=== PATIENT | female | born 1995 | race Caucasian/White ===

== ENCOUNTER 2023-06-25 10:51 | Outpatient (CLI) | payer OTHER, SELFPAY ==
[2023-06-25 11:44] LABS: Basophils Percent Auto 0.6 % (0.2-1.2); Eosinophils Absolute Auto 0.1 K/mm3 (0-0.3); Eosinophils Percent Auto 1.3 % (0-4.4); Hematocrit 41.5 % (37.0-47.0); Immature Granulocyte Absolute 0.02 K/mm3 (0.00-0.031); Immature Granulocyte Percent A 0.3 % (0-0.5); Lymphocytes Percent Auto 26.2 % (18.3-44.2); Mean Corpuscular HGB Conc 33.7 g/dl (32-36); Mean Corpuscular Hemoglobin 32.3 pg (26-34); Mean Corpuscular Volume 95.8 fl (80-100); Mean Platelet Volume 9.6 fl (7.4-10.4); Monocytes Absolute Auto 0.6 K/mm3 (0.1-0.6); Monocytes Percent Auto 8.2 % (2.6-8.5); Neutrophils Absolute Auto 4.4 K/mm3 (1.3-6.7); Neutrophils Percent Auto 63.4 % (45.5-73.1); Platelet Count Result 239 k/mm3 (150-375); Red Blood Count 4.33 M/mm3 (4.2-5.4); Red Cell Distribution Width 12.4 % (11.5-14.5); White Blood Count 6.9 K/mm3 (4.5-10.0)
[2023-06-25 12:41] LABS: HIV 1/2 Ab P24 Ag Result Negative (Negative); Rapid Plasma Reagin Non-Reactive (NonReactive)
[2023-06-25 13:33] LABS: Hepatitis B Surface Antigen Negative (Negative); Rubella IgG Antibody 25.1 IU/ML
[2023-06-28 16:26] LABS: Varicella IgG Antibody <135.00 Index (>=165.00)
[2023-07-03 00:31] LABS: CF Result NEGATIVE (NEGATIVE)
[2023-07-05 17:03] LABS: SMA 2.0 RISK VARIANT NOT DETECTED
[2023-07-13 15:29] LABS: SMA Results Received Yes
== END 2023-06-25 10:52 | disposition home or self-care (01) ==
PROVIDERS: PCP Student in an Organized Health Care Education/Training Program; Visit Provider Student in an Organized Health Care Education/Training Program
DX: N91.2 Amenorrhea, unspecified (principal)
CPT/HCPCS: 36415; 81220; 81329; 85025; 86592; 86644; 86703; 86747; 86762; 86787; 86850; 87086; 87340; G0432

== ENCOUNTER 2023-07-31 16:37 | Outpatient (CLI) | payer OTHER, SELFPAY | END 2023-07-31 16:38 | disposition home or self-care (01) | PROVIDERS: PCP Student in an Organized Health Care Education/Training Program; Visit Provider Student in an Organized Health Care Education/Training Program | DX: N91.2 Amenorrhea, unspecified (principal) | CPT/HCPCS: 36415; 86900; 86901 ==

== ENCOUNTER 2023-11-03 10:45 | Outpatient (CLI) | payer OTHER, SELFPAY ==
[2023-11-03 12:28] LABS: Hematocrit 39.5 % (37.0-47.0); Hemoglobin 12.7 g/dL (12.0-15.0); Mean Corpuscular HGB Conc 32.2 g/dl (32-36); Mean Corpuscular Hemoglobin 32.7 pg (26-34); Mean Corpuscular Volume 101.8 fl (80-100); Mean Platelet Volume 9.9 fl (7.4-10.4); Platelet Count Result 190 k/mm3 (150-375); Red Blood Count 3.88 M/mm3 (4.2-5.4); Red Cell Distribution Width 13.8 % (11.5-14.5); White Blood Count 7.3 K/mm3 (4.5-10.0)
[2023-11-03 12:38] LABS: Glucose 1 Hour PP 50gm Dose 124 mg/dL
[2023-11-03 13:53] LABS: HIV 1/2 Ab P24 Ag Result Negative (Negative)
== END 2023-11-03 10:46 | disposition home or self-care (01) ==
LOC: ANHLAB 10:47
PROVIDERS: Visit Provider Student in an Organized Health Care Education/Training Program
DX: Z34.90 Encounter for supervision of normal pregnancy, unspecified, unspecified trimester (principal); Z3A.00 Weeks of gestation of pregnancy not specified
CPT/HCPCS: 36415; 82947; 85027; 86703; G0432

== ENCOUNTER 2023-12-24 15:52 | Outpatient (CLI) | payer OTHER, SELFPAY ==
--- NOTE | ~2023-12-24 | US_ITS ---
EXAMINATION: US OB follow up DATE: 12/24/2023 16:24 INDICATION: Encounter for supervision of normal . TECHNIQUE: Real-time ultrasound of the pelvis was performed. COMPARISON: Ultrasound 09/12/2023, 06/06/2023 FINDINGS: There is a single living fetus in vertex presentation. The placenta is anterior. heart rate is 133 beats per minute (bpm). The amniotic fluid index is 12.0 cm, which is normal. The following biometric data were obtained: Biparietal diameter (BPD): 9.1 cm; head circumference (HC): 32.8 cm; abdominal circumference (AC): 32 .0 cm; femur length (FL): 6.6 cm. These measurements are concordant. Estimated weight is 2750 g +/- 413 g, which correlates with the 57th percentile when 01/25/24 is used as estimated date of delivery. As single measurements, these parameters are each equal to the following estimated gestational ages: BPD: 37 weeks 0 days. HC: 37 weeks 2 days. AC: 35 weeks 6 days. FL: 34 weeks 1 days. estimated gestational age based solely on measurements from this exam is 36 weeks 1 days +/- 2 weeks 4 days. IMPRESSION: 1. Single living fetus in vertex presentation. 2. Estimated weight is 2750 g +/- 413 g, which correlates with the 57th percentile when 4 is used as estimated date of delivery. Reviewed, dictated and finalized at location A. IMPRESSION: 1. Single living fetus in vertex presentation. 2. Estimated weight is 2750 g +/- 413 g, which correlates with the 57th percentile when 01/25/24 is used as estimated date of delivery.
== END 2023-12-24 15:53 ==
PROVIDERS: PCP Obstetrics & Gynecology; Visit Provider Obstetrics & Gynecology
DX: Z34.93 Encounter for supervision of normal pregnancy, unspecified, third trimester (principal); Z3A.36 36 weeks gestation of pregnancy
CPT/HCPCS: 76816

== ENCOUNTER 2024-01-22 21:32 | Inpatient (IN) | payer OTHER, SELFPAY ==
[2024-01-22 21:45] VITALS: TEMP 36.1
[2024-01-23] VITALS (175 sets, daily range): BP systolic 63–134; BP diastolic 26–118; PULSE 66–204; RESP 16–20; TEMP 36.6–37.1; O2SAT 75–100; BMI 26.6
--- NOTE | 2024-01-23 01:03 | LDADM ---
This patient, Neema Olmedo, was admitted to Labor/Delivery/Recovery 106 on 01/22/24 at 21:32. Plans for labor, pain management and were discussed with patient. Patient/family oriented to hospital policies and general routines including ID bracelet, bed and alarms, visiting hours, pain management, procedures, bathroom and other care routines, personal items, smoking policy, room service/diet and guest tray routines, infant security routines, and visiting hours. Patient/Family are encouraged to report perceived risks to care and to ask questions if they do not understand what they are told or what they should do. See OBIX for further documentation.
[2024-01-23 01:20] LABS: Basophils Percent Auto 0.3 % (0.2-1.2); Eosinophils Percent Auto 0.1 % (0-4.4); Hematocrit 40.8 % (37.0-47.0); Immature Granulocyte Absolute 0.07 K/mm3 (0.00-0.031); Immature Granulocyte Percent A 0.6 % (0-0.5); Lymphocytes Absolute Auto 1.57 K/mm3 (0.9-3.2); Lymphocytes Percent Auto 13.1 % (18.3-44.2); Mean Corpuscular HGB Conc 34.3 g/dl (32-36); Mean Corpuscular Hemoglobin 33.2 pg (26-34); Mean Corpuscular Volume 96.7 fl (80-100); Mean Platelet Volume 10.5 fl (7.4-10.4); Monocytes Absolute Auto 0.7 K/mm3 (0.1-0.6); Monocytes Percent Auto 5.4 % (2.6-8.5); Neutrophils Absolute Auto 9.6 K/mm3 (1.3-6.7); Neutrophils Percent Auto 80.5 % (45.5-73.1); Platelet Count Result 202 k/mm3 (150-375); Red Blood Count 4.22 M/mm3 (4.2-5.4); Red Cell Distribution Width 13.3 % (11.5-14.5)
[2024-01-23] MEDS: LACTATED RINGERS 1,000 ML 125 ML IV CONT ×2 (02:18→09:15)
--- NOTE | 2024-01-23 03:16 | WPDANESEPP ---
Anes - Eval Pre Procedure Procedure: Labor Epidural Date/Time: 01/23/24 03:16 Surgeon: Mikel Preop Diagnosis: Labor Pain Pre Op Diagnosis: Contractions Patient Data Age: 28 Gender: F Height: 1.68 m Weight: 75 kg Last Vital Signs Temp 36.1 C L 01/22/24 21:45 Pulse 93 01/23/24 03:00 BP 113/68 01/23/24 03:00 O2 Del Method Room Air 01/23/24 01:02 Allergies Allergy/AdvReac Type Severity Reaction Status Date / Time No Known Allergies Allergy Verified 01/22/24 17:16 Home Medications Medication Instructions Recorded Confirmed Type vits no.126-ferrous fum tablet PO 07/02/23 01/22/24 History 28 mg iron-folic acid 800 mcg tablet (Classic ) Laboratory Tests 01/23/24 00:45 WBC 12.0 H K/mm3 (4.5-10.0) RBC 4.22 M/mm3 (4.2-5.4) Hgb 14.0 g/dL (12.0-15.0) Hct 40.8 % (37.0-47.0) MCV 96.7 fl (80-100) MCH 33.2 pg (26-34) MCHC 34.3 g/dl (32-36) RDW 13.3 % (11.5-14.5) Plt Count 202 k/mm3 (150-375) MPV 10.5 H fl (7.4-10.4) Immature Gran % (Auto) 0.6 H % (0-0.5) Neut % (Auto) 80.5 H % (45.5-73.1) Lymph % (Auto) 13.1 L % (18.3-44.2) [place] % (Auto) 5.4 % (2.6-8.5) Eos % (Auto) 0.1 % (0-4.4) Baso % (Auto) 0.3 % (0.2-1.2) Lymph # (Auto) 1.57 K/mm3 (0.9-3.2) [place] # (Auto) 0.7 H K/mm3 (0.1-0.6) Eos # (Auto) 0.0 K/mm3 (0-0.3) Baso # (Auto) 0.0 K/mm3 (0.0-0.1) Abs Immat Gran (auto) 0.07 H K/mm3 (0.00-0.031) Absolute Neuts (auto) 9.6 H K/mm3 (1.3-6.7) Absolute Nucleated RBC 0.000 K/mm3 (0.0-0.012) Nucleated RBC % 0.0 % (0.0-0.2) RPR Pending Blood Type A Positive Antibody Screen Negative : gestational age Patient hx anesthesia problems: none Family hx anesthesia problems: none Results Review: All pre-operative results and documents have been reviewed as part of the pre-operative evaluation. [facility] Past Medical History Medical History Family History Family History Grandparent Diabetes mellitus Social History Social History Smoking status: Never smoker Second hand tobacco smoke exposure: No Alcohol intake: former Substance use: never Do You Feel Safe in your Home?: Yes Lack of Transportation: No Lack of Food: Never True Current Housing: I Have Housing Concerned About Future Housing: No Difficulty Paying Gas/Electric Bills: No Difficulty Paying for Meds: No Currently Unemployed: No Education: Bachelor's Degree Difficulty w/ Childcare or Family Care: No Living arrangements: with family Occupation/Education: occupation Additional occupation/education comments: teacher Gender identity (if verbalized by the patient): Female Sexual Orientation (if Verbalized by the Patient): Straight or Heterosexual Spiritual care concerns: No Exam Day of Procedure 01/23/24 03:16 Patient weight: normal Heart: regular rate and rhythm Lungs: normal air movement Airway: Mallampati scale class II Neurological: alert and oriented
--- NOTE | 2024-01-23 07:53 | WPDHPUPDATE1 ---
History and Physical Update Update Date/Time: 01/23/24 07:53 28 yo G1 who presents in labor. History and Physical has been reviewed, including an updated exam of the patient. There are NO changes in the patient's condition. Risks, benefits, and alternatives have been discussed and questions answered. Patient agrees to proceed with procedure. A/P: admit to labor routine admission orders Rh+ GBS neg expectant management continuous EFM
--- NOTE | 2024-01-23 07:59 | PM.OBPNLAB ---
Pain Control Date/time seen: 01/23/24 07:59 Pain control: epidural Pelvic Exam Dilation (cm): 6 Effacement (%): 90 station: -1 Amniotic membrane status: Intact Contractions Monitor mode: External Contraction pattern: Regular Status status: Category ll Assessment and Plan Assessment: active labor Comments: AROM for meconium stained fluid.
[2024-01-23] MEDS: OXYTOCIN 30 UNITS/NS 500 ML 30 UNITS/500 ML BAG IV CONT (09:15)
[2024-01-23 12:30] LABS: Rapid Plasma Reagin Non-Reactive (NonReactive)
--- NOTE | 2024-01-23 13:05 | WPDHPUPDATE1 ---
History and Physical Update Update Date/Time: 01/23/24 13:05 History and Physical has been reviewed, including an updated exam of the patient. There are NO changes in the patient's condition. Risks, benefits, and alternatives have been discussed and questions answered. Patient agrees to proceed with procedure.
--- NOTE | 2024-01-23 13:05 | WPDOBADMIT ---
Obstetrics - Admit Note Admission Note: record reviewed. No pertinent additions to the history and/or any subsequent changes in the physical findings that are not consistent with the expected course of the were found. Additions to the history and/or subsequent changes in the physical findings follow. None.
--- NOTE | 2024-01-23 13:05 | PM.OBPRVD ---
OB - Vaginal Delivery Note Procedure Delivery date: 01/23/24 Intrapartal Events: Other ( Meconium-stained) Induction method: None Delivery augmentation: Rupture of Membranes and Pitocin Delivery monitor: External FHT and External Uterine Route of delivery: Episiotomy description: None Laceration Description: Perineal - 2nd Degree Delivery repair: chromic Specimen: Yes Quantitative Blood Loss (ml): 200 Anesthesia type: Epidural Disposition: Floor Complications: No immediate complications Narrative: patient prepped and draped in usual manner this procedure. Maternal expulsive efforts readily delivered vertex, rest of baby was delivered without difficulty. Cord clamped cut baby was passed off the operative field to countersinker balance screw hole who was in attendance. Placenta delivered spontaneously, uterus was well contracted. Second-degree laceration was noted and approximated using 2-0 chromic my approximate vaginal tissue deep tissue was subcuticular layer with good approximation hemostasis noted. Uterus was well contracted with minimal bleeding and this point the procedureWas considered terminated. [place] Baby Weeks of gestation at delivery: 39 Infant gender: Male Weight (pounds): 7 Weight (ounces): 10 presentation: vertex position: Right Occiput Anterior Placenta delivery description: Spontaneous Cord Vessel Description: 3 Vessels score one minute: 8 score five minutes: 9
[2024-01-23] MEDS: OXYTOCIN 30 UNITS/NS 500 ML 30 UNITS/500 ML BAG 125 UNITS IV CONT (13:30)
[2024-01-23] MEDS: WITCH HAZEL 40 PADS 1 PAD TOPICAL (15:08)
[2024-01-23] MEDS: BENZOCAINE 20% AER SPR (*SP) 56 GM CAN 1 SPRAY TOPICAL (15:08)
--- NOTE | 2024-01-23 15:35 | OBPPTRN ---
Patient transferred to post room #280 via wheelchair. Support person present. Oriented to unit, room, information board, rooming in, admission packet and security measures. Patient verbalizes understanding.
[2024-01-23] MEDS: ACETAMINOPHEN 325 MG TABLET 650 MG PO (16:20)
[2024-01-23] MEDS: IBUPROFEN 600 MG TABLET PO (16:20)
[2024-01-23] MEDS: DIBUCAINE 1% OINTMENT 30 GM TUBE 1 APPLIC TOPICAL (17:56)
--- NOTE | 2024-01-23 20:19 | WPDANLDPN2 ---
Anes-Prog Note L&D Date/Time: 01/23/24 20:19 Comfortable throughout: labor and delivery Neuraxial method: epidural Epidural/Spinal procedure site: clean & non-tender Neuro status: Neuro function grossly intact. Cardiovascular status: normal Respiratory status: normal Airway patency: baseline Mental status: baseline Post-Op hydration status: normal Vital Signs: Last Vital Signs Temp 36.6 C 01/23/24 19:15 Pulse 96 01/23/24 19:15 Resp 20 01/23/24 19:15 BP 104/64 01/23/24 19:15 Pulse Ox 99 01/23/24 19:15 O2 Del Method Room Air 01/23/24 15:40 Pain score (VAS): 09/26 I/O: Intake & Output 01/23/24 01/23/24 01/23/24 07:59 15:59 23:59 Intake Total 1368.8 Output Total 200 Balance 1168.8 Post-procedural complaints: none Patient feedback: Patient satisfied with anesthetic care.
[2024-01-24 03:11] VITALS: BP 96/58; PULSE 67; RESP 20; TEMP 36.7; O2SAT 100
[2024-01-24] MEDS: HYDROcodone/acetaminophen (*CRX) 5-325 MG TABLET 1 TAB PO (03:26)
[2024-01-24] MEDS: IBUPROFEN 600 MG TABLET PO ×4 (03:27→23:43)
[2024-01-24 04:43] LABS: Hematocrit 35.2 % (37.0-47.0); Hemoglobin 11.4 g/dL (12.0-15.0)
[2024-01-24] MEDS: DOCUSATE SODIUM 100 MG CAPSULE PO ×2 (08:45→17:09)
[2024-01-24] MEDS: MULTIVIT/MIN/PREN/FOL AC/IRON TABLET 1 TAB PO (08:45)
--- NOTE | 2024-01-24 08:57 | PM.OBDSVD ---
DS: Admitting Diagnosis Discharge Date 01/25/2024 Admitting Diagnosis DS: Discharge Diagnosis Discharge Diagnosis (1) , delivered: Code(s): O80 - Encounter for full-term uncomplicated delivery Status: Acute OB - DS: Summary OB Procedures : None OB Procedures Intrapartum: Spontaneous Vag Delivery OB Procedures: : None Peripartum Data Laceration Description: Perineal - 2nd Degree Episiotomy description: None Time Spent with Patient Time attestation: Total time spent providing and/or coordinating discharge services: DS: Data Data Completed and Pending Pending studies at discharge: Pending at discharge 01/23/24 13:57 Surgical [PTH] Routine Labs on day of discharge: Labs from last 24 hours 01/24/24 01/23/24 02:59 00:45 Hgb 11.4 L Hct 35.2 L RPR Non-reactive Discharge Plan Discharge Discharging Clinician: Luisito Morin Patient Disposition: Home, Self-Care Activity: unlimited and pelvic rest Diet: as tolerated Patient Instructions: Antibiotic Form Stand Alone Forms: General Discharge Information Follow-up/Referrals: Luisito Morin MD [Physician] - 3 Weeks Discharge Medications: New hydrocodone-acetaminophen 5-325 mg Tablet 1 tablet PO Q3HR PRN (Reason: Pain Rated 4-6) Qty: 10 0RF ibuprofen 600 mg Tablet 600 mg PO Q6H PRN (Reason: Cramping) Qty: 30 0RF Continued Classic 28 mg iron- 800 mcg tablet PO Date of admission: 01/22/24 21:32 Primary Care Provider: UNKNOWN,DOCTOR Admitting Provider: Luisito Morin Attending physician on admission: Luisito Morin Condition: Stable
[2024-01-24 09:30] VITALS: BP 93/63; PULSE 80; RESP 16; TEMP 36.9; O2SAT 100
[2024-01-24] MEDS: ACETAMINOPHEN 325 MG TABLET 650 MG PO ×3 (09:38→23:42)
--- NOTE | 2024-01-24 13:06 | WPDANLDPN2 ---
Anes-Prog Note L&D Date/Time: 01/24/24 13:06 Comfortable throughout: labor and delivery Neuraxial method: epidural Epidural/Spinal procedure site: clean & non-tender Neuro status: Neuro function grossly intact. Cardiovascular status: normal Respiratory status: normal Airway patency: baseline Mental status: baseline Post-Op hydration status: normal Vital Signs: Last Vital Signs Temp 36.9 C 01/24/24 09:30 Pulse 80 01/24/24 09:30 Resp 16 01/24/24 09:30 BP 93/63 L 01/24/24 09:30 Pulse Ox 100 01/24/24 09:30 O2 Del Method Room Air 01/23/24 15:40 Pain score (VAS): 3/10 Post-procedural complaints: none Patient feedback: Patient satisfied with anesthetic care.
--- NOTE | 2024-01-24 16:42 | PC.NURSE ---
[id number] Introductions were made, then consulted with patient to assess needs related to . Mother led the conversation with her?plans to feed?her infant and the?experience so far. Encouraged understanding of the benefits of skin to skin (demonstrating unwrapping and placing upright on her chest), stimulating with massage touch, changing positions to encourage wakefulness, how to watch for early feeding cues, responsive feeding, feeding on demand (aiming for 8-12 times in 24 hours, about every 2-3 hours), milk production, building/maintaining a milk supply, duration of feeding, signs of adequate intake/output and how to record on the feeding sheet. Mother works well with her with encouragement and education. Reviewed positioning and ear, shoulder, hip alignment, supporting the breast to facilitate a deep latch, asymmetrical latch (off-center), leading with the chin with a big, open, wide gape and body close to mother. Infant latched optimally to the right breast in cross cradle position. Education given to the mother of how to visualize the suckling (with good rocking jaw motion), swallows (dropping of the lower jaw) and how to listen for drinking at the breast (the ka sound) which demonstrates. Infant was able to maintain latch without pain to mother protecting the nipple with optimal positioning, latching until self detaching with no misshaped nipple. Reviewed comfort measures of healing with a warm, wet washcloth to rinse breast, then leave open to air-dry, good handwashing when or touching the breast/nipples to prevent infection. Mother voiced understanding of skin to skin, stimulating with massage touch, responsive feedings, hand expressed colostrum, talking to infant to encourage if it has been 2 -2.5 hours since the start of the last , to call if does not latch, or if there is discomfort with . Resources used for education were facilitated with the visual educational handouts/ tool/mom and baby guide. Inpatient/outpatient name written on the communication board and the mom/baby guide. Parents voiced understanding of information, demonstrated learning and will call if there is a request for assistance. Reported to the Primary RN.
[2024-01-24 20:54] VITALS: BP 92/65; PULSE 89; RESP 18; TEMP 36.4; O2SAT 100
[2024-01-25 07:45] VITALS: BP 108/67; PULSE 82; RESP 16; TEMP 36.6; O2SAT 100
--- NOTE | 2024-01-25 08:30 | PC.NURSE ---
Karie Montague RN at the desk, notified that mother is getting ready to feed and has requested that Gloria come in to observe the latch and feeding. Mother also has questions.
--- NOTE | 2024-01-25 09:39 | PC.NURSE ---
Addendum entered by Genet Frausto RN 01/25/24 09:42: Mother states that DanayRusty Montague did not make it in the room for the 0830 feeding so she would like to see her at the next feeding, mother wants to see her before going home today. Original Note: Karie Montague RN notified that baby is due to eat around [id number] and mother would like her to come in and see the feeding before she goes home.
--- NOTE | 2024-01-25 10:21 | PC.NURSE ---
Patient viewed the discharge video Mother & Baby Care, The First Two Weeks . Patient was given the opportunity and encouraged to ask questions. Patient verbalized understanding of information shared and has been given the mother/baby guide for home reference.
[2024-01-25] MEDS: WITCH HAZEL 40 PADS 1 PAD TOPICAL (10:25)
[2024-01-25] MEDS: BENZOCAINE 20% AER SPR (*SP) 56 GM CAN 1 SPRAY TOPICAL (10:25)
[2024-01-25] MEDS: MULTIVIT/MIN/PREN/FOL AC/IRON TABLET 1 TAB PO (10:25)
[2024-01-25] MEDS: DOCUSATE SODIUM 100 MG CAPSULE PO (10:28)
[2024-01-25] MEDS: ACETAMINOPHEN 325 MG TABLET 650 MG PO (11:38)
[2024-01-25] MEDS: IBUPROFEN 600 MG TABLET PO (11:40)
--- NOTE | 2024-01-25 13:32 | PC.NURSE ---
[id number] Purposefully rounded to assess for needs as it is has been 2.5 hours since the start of the last feeding as reported from the Primary RN. Reviewed with parents watching the REM that infant is demonstrating, waking infant, responding to the feeding cues, and feeding on demand encouraging not going so long between feedings but rather encourage about every 1-3 hours. There was quite a bit of time spent answering, demonstrating and educating parents with soothing, burping, holding, moving, along with the milk production, circumcision care, diaper changes etc. Mother moves slowly related to pain after delivery and she was encouraged to take her pain medication. Encouraged parents to respond to infants needs and know how to manage their stress with self care solutions, walking, sitting outside, quiet noise for the infant to soothe. Parents shared that they took all of the classes offered to prepare for having a child and they are encouraged to take deep breaths and know when to reach out to their support systems. 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 latched effectively to the left and the right breast at this session, swallowing was visualized, mother denied pain, there was no misshaping of the nipples, nipples have some bruising, skin is intact. Reviewed with father of baby how to support mother with pillows, hydration, food and holding, patting, , swaying, walking and encouraged going outside on nice days. has had appropriate feedings in the last 24 hours meets the outcomes for weight, output, blood sugar and jaundice at this time. Reinforced understanding of milk production, transition of milk, signs of adequate intake, transition of stool, prevention/relief of engorgement, plugged ducts, mastitis, responsive watching for feeding cues, the different methods of stimulating to breastfeed 1-3 hours after the start of the last feeding, community resources, and when to call a provider using the resource of the feeding sheet along with the mom and baby guide. Parents voiced understanding of the information shared, plans to effectively breastfeed their infant at home, when to call for assistance. Reported to the Primary RN.
[2024-01-26 11:17] VITALS: BP 100/86; PULSE 83; RESP 16; TEMP 36.4; O2SAT 99
== END 2024-01-25 12:50 | disposition home or self-care (01) | DRG 807 ==
LOC: ANHLDR 01-23 10:52 → ANHOB2 01-23 15:40
PROVIDERS: Admitting Provider Student in an Organized Health Care Education/Training Program; Visit Provider Obstetrics & Gynecology
DX: O77.0 Labor and delivery complicated by meconium in amniotic fluid (principal); Z37.0 Single live birth; Z3A.39 39 weeks gestation of pregnancy; O70.1 Second degree perineal laceration during delivery
CPT/HCPCS: 36415; 85014; 85018; 85025; 86592; 86850; 86900; 86901; 88307; A9270; J2590; J2795; J7120